=== PATIENT | female | born 2000 | race Caucasian/White ===

== ENCOUNTER 2024-08-27 11:03 | Emergency (ER) | payer SELFPAY ==
[~2024-08-27] VITALS: Ht 152.4 cm; Wt 81.6 kg
[2024-08-27 11:10] VITALS: O2SAT 100
[2024-08-27 11:15] VITALS: BP 117/66; PULSE 69; RESP 18; TEMP 37.1; O2SAT 98
[2024-08-27 14:00] LABS: HCG SCREEN POSITIVE
[2024-08-27] MEDS ORDERED: PNV1TABL76 MT (15:04)
== END 2024-08-27 15:14 | disposition home or self-care (01) ==
LOC: ER 11:03
DX: Z32.01 Encounter for pregnancy test, result positive (principal)
CPT/HCPCS: 36415; 84702; 84703; 99283